=== PATIENT | female | born 1980 | race American Indian/Alaskan Native ===

== ENCOUNTER 2018-03-07 10:07 | Outpatient (CLI) | payer OTHER | END 2018-03-07 11:03 | disposition home or self-care (01) | LOC: NST 10:07 | DX: Z34.83 Encounter for supervision of other normal pregnancy, third trimester (principal); Z3A.37 37 weeks gestation of pregnancy ==

== ENCOUNTER 2018-03-10 08:57 | Outpatient (CLI) | payer OTHER | END 2018-03-10 10:15 | disposition home or self-care (01) | LOC: NST 08:57 | DX: Z34.83 Encounter for supervision of other normal pregnancy, third trimester (principal) ==

== ENCOUNTER 2018-03-12 08:30 | Inpatient (IN) | payer OTHER ==
[~2018-03-12] VITALS: Ht 157.5 cm; Wt 2.7 kg
[2018-03-12] MEDS ORDERED: OBSTETRIX DHA1 EACH PO (09:19)
== END 2018-03-17 10:51 | disposition home or self-care (01) | DRG 766 ==
LOC: LDR 03-14 20:17 → OB/GYN 03-14 20:17 → LDR 03-19 08:30 → OB/GYN 03-19 08:30
PROVIDERS: Obstetrics & Gynecology Maternal & Fetal Medicine
PROC: 4A1HXCZ Monitoring of Products of Conception, Cardiac Rate, External Approach (ICD-10-PCS; 2018-03-14)
PROC: 10D00Z1 Extraction of Products of Conception, Low, Open Approach (ICD-10-PCS; principal; 2018-03-14 20:00)
DX: O34.211 Maternal care for low transverse scar from previous cesarean delivery (principal); Z3A.38 38 weeks gestation of pregnancy; Z37.0 Single live birth